=== PATIENT | male | born 1935 | race Caucasian/White ===

== ENCOUNTER → 2016-12-23 09:09 | Outpatient (CLI) | payer MEDICARE, OTHER, BC ==
[2015-05-24 11:22] VITALS: BMI 28.7
[~2016-12-23 09:09] MED LIST: ASPIRIN EC81 M1 PO; BETAPACE 80 MG80 MG PO; FLOMAX0.4 MG PO; LISINOPRIL10 MG; OMEPRAZOLE PO; PLAVIX75 MG PO; SAW PALMETTO450 MG PO; ZOCOR20 MG PO; ZOCOR40 MG PO
== END | disposition home or self-care (01) ==
LOC: D.CT 09:09
DX: R42 Dizziness and giddiness (principal)

== ENCOUNTER 2017-09-20 11:06 | Emergency (ER) | payer MEDICARE, OTHER, BC ==
[2015-05-24 11:22] VITALS: BMI 28.7
[2017-09-20 11:47] LABS: BASOPHILS 0.2 % (0-2); EOSINOPHILS 3.7 % (0-7); HEMATOCRIT 41.9 % (42.0-54.0); HEMOGLOBIN 14.1 g/dL (13.5-17.5); LYMPHOCYTES 22.7 % (15-50); MCH 32.3 pg (26.0-34.0); MCHC 33.7 g/dL (31.0-37.0); MCV 95.9 fL (80.0-100.0); MEAN PLATELET VOLUME 10.1 fL (7.4-10.4); MONOCYTES 11.2 % (2-11); NEUTROPHILS 62.2 % (40-80); RBC 4.37 10x6/uL (4.20-6.10); RDW 12.5 % (11.5-14.5); WBC 5.2 10x3/uL (4.8-10.8)
[2017-09-20 11:56] LABS: PLATELET COUNT 115 10x3/uL (130-400)
[2017-09-20 12:01] LABS: APTT 29.3 SECONDS (22.8-39.4); INR 1.07 (0.85-1.17); PROTIME 13.8 SECONDS (11.6-15.0)
[2017-09-20 12:02] LABS: ALBUMIN 3.8 g/dL (3.4-5.0); ANION GAP 13.9 mmol/L (8-16); BILIRUBIN - TOTAL 1.18 mg/dL (0.2-1.3); CALCIUM 8.5 mg/dL (8.5-10.1); CARBON DIOXIDE 25.2 mmol/L (21.0-32.0); CREATININE - SERUM 1.6 mg/dL (0.6-1.3); POTASSIUM - SERUM 4.1 mmol/L (3.5-5.1); PROTEIN - SERUM 6.8 g/dL (6.4-8.2)
== END 2017-09-20 14:05 | disposition home or self-care (01) ==
LOC: D.ER 11:06
PROVIDERS: Emergency Medicine
DX: G45.9 Transient cerebral ischemic attack, unspecified (principal); I10 Essential (primary) hypertension; Z95.0 Presence of cardiac pacemaker

== ENCOUNTER → 2018-09-19 13:29 | Outpatient (CLI) | payer MEDICARE, OTHER, BC ==
[2015-05-24 11:22] VITALS: BMI 28.7
== END | disposition home or self-care (01) ==
LOC: D.CT 13:29
DX: R93.89 Abnormal findings on diagnostic imaging of other specified body structures (principal); M54.5 Low back pain

== ENCOUNTER 2019-12-31 00:10 | Inpatient (IN) | payer MEDICARE, OTHER, BC ==
[~2019-12-31] VITALS: Ht 177.8 cm; Wt 82.3 kg
--- NOTE | ~2019-12-31 | EC ---
PATIENT:KAYLA GOMEZ DATE OF SERVICE: 12/31/19 SEX: M MEDICAL RECORD: [id number] DATE OF : [birth year] LOCATION:D.M2 D.213 AGE OF PATIENT: 84 ADMISSION DATE: 12/31/19 REFERRING PHYSICIAN: INTERPRETING PHYSICIAN: PEDRO NICHOLAS MD ECHOCARDIOGRAM REPORT ECHO CHARGES 4 ECHO COMPLETE Date: 01/01/20 CLINICAL DIAGNOSIS: DYSPNEA ECHOCARDIOGRAPHIC MEASUREMENTS (adult normal given) AC root (d.<3.7cm) 2.9 cm LV Septum d (<1.2 cm> 0.8 cm Valve Excursion 1.5 cm LV Septum (systole) 1.2 cm Left Atria (s.<4.0cm> 4.5 cm LVPW d(<1.2cm) 1.2 cm RV (d.<2.3cm) 3.1 cm LVPW (sytole) 1.6 cm LV diastole(<5.6CM) 6.7 cm MV E-F(>70mm/sec) cm LV systole 5.2 cm LVOT Diameter 2.0 cm MV exc.(>10mm) cm Est.ejection fraction (50-75%) % DOPPLER: LVIT cm/sec A 86 cm/sec E 64 cm/sec LA cm/sec RVSP 20.4 mmHg LVOT 99 cm/sec AOP1/2T m/s Asc. Ao 125 cm/sec RVOT 48 cm/sec RA cm/sec PA 78 cm/sec AV Gradient Peak 6.2 mmHg AV Mean 3.3 mmHg AV Area 2.2 cm MV Gradient Peak 3.4 mmHg MV Mean 1.5 mmHg MV Area cm COMMENTS: Air Sampler: Lacy [facility] Supervisor Metal Cans: 1 Dr. Nicholas TAPE# PACS Pericardial Effusion N DATE OF SERVICE: 01/01/2020 PROCEDURE: Echocardiogram. FINDINGS: 1. Left ventricular chamber size is mildly dilated. Left ventricular systolic function is preserved at 55% to 60%. 2. Left atrium is enlarged at 4.5 cm. Right atrium and right ventricular chamber sizes are within normal limits. 3. Valvular structures have normal structure and motion. ECHOCARDIOGRAM REPORT [id number] KAYLA GOMEZ 4. Doppler interrogation reveals no significant valvular insufficiency or stenosis. 5. No evidence of pericardial effusion or left ventricular thrombus. TRANSINT:[id number] Voice Confirmation ID: [id number] DOCUMENT ID: [id number] PEDRO NICHOLAS MD CC: [id number] DICTATION DATE: 01/01/20 1431 JEWEL STRIPPER: 01/01/20 1733 ADM IN [place] [id number] [place] [id number]
[2019-12-31 00:24] LABS: BASOPHILS 0.1 % (0-2); EOSINOPHILS 0.8 % (0-7); HEMATOCRIT 38.7 % (42.0-54.0); HEMOGLOBIN 12.7 g/dL (13.5-17.5); IMMATURE GRANULOCYTES 0.3 % (0-5); LYMPHOCYTES 4.5 % (15-50); MCH 30.4 pg (26.0-34.0); MCHC 32.8 g/dL (31.0-37.0); MCV 92.6 fL (80.0-100.0); MEAN PLATELET VOLUME 9.6 fL (7.4-10.4); MONOCYTES 4.6 % (2-11); NEUTROPHILS 89.7 % (40-80); PLATELET COUNT 145 10x3/uL (130-400); RBC 4.18 10x6/uL (4.20-6.10); RDW 14.8 % (11.5-14.5); WBC 11.7 10x3/uL (4.8-10.8)
[2019-12-31] MEDS ORDERED: CATAPRES0.1 MG PO ×2 (00:25→04:18)
[2019-12-31] MEDS ORDERED: UROXATRAL10 MG PO (00:25)
[2019-12-31] MEDS ORDERED: BAYER CHEWABLE81 MG PO (00:25)
[2019-12-31] MEDS ORDERED: CELEXA20 MG PO (00:25)
[2019-12-31] MEDS ORDERED: PROSCAR5 MG PO (00:26)
[2019-12-31] MEDS ORDERED: PRINIVIL20 MG PO (00:27)
[2019-12-31] MEDS ORDERED: METHOCARBAMOL500 MG PO ×2 (00:28→04:22)
[2019-12-31 00:32] LABS: APTT 27.2 SECONDS (22.8-39.4); INR 1.07 (0.85-1.17); PROTIME 13.8 SECONDS (11.6-15.0)
[2019-12-31 00:34] LABS: CALC OSMOLALITY 287 mosm/kg (275-300); CALCIUM 8.3 mg/dL (8.5-10.1); CARBON DIOXIDE 24.2 mmol/L (21.0-32.0); CHLORIDE - SERUM 108 mmol/L (98-107); CREATININE - SERUM 1.3 mg/dL (0.6-1.3); GLUCOSE 187 mg/dL (74-106); POTASSIUM - SERUM 4.6 mmol/L (3.5-5.1); SODIUM 140 mmol/L (136-145); UREA NITROGEN 25 mg/dL (7-18); eGFR NON AFRICAN AMERICAN 56 mL/min (90-120)
[2019-12-31 01:00] LABS: ALBUMIN 3.4 g/dL (3.4-5.0); ALKALINE PHOSPHATASE 41 U/L (30-120); ALT (SGPT) 21 U/L (10-68); CKMB 1.6 U/L (0.0-3.6); CREATINE KINASE 106 UL (21-232); PROTEIN - SERUM 6.5 g/dL (6.4-8.2); TROPONIN-I < 0.017 ng/mL (0.000-0.060)
--- NOTE | 2019-12-31 01:00 | NUR ---
PT STATES THAT HE COULD NOT HOLD IT AND URINATED IN DEPENDS. PT CHANGED AND GIVEN URINAL AT THIS TIME.
--- NOTE | 2019-12-31 03:30 | NUR ---
PT ABLE TO SIT ON BEDSIDE AND USE URINAL AT THIS TIME.
[2019-12-31 03:58] LABS: BILIRUBIN NEGATIVE (NEGATIVE); GLUCOSE NEGATIVE (NEGATIVE); KETONE NEGATIVE (NEGATIVE); NITRITE NEGATIVE (NEGATIVE); SPECIFIC GRAVITY 1.015 (1.005-1.020); UROBILINOGEN NORMAL (NORMAL)
[2019-12-31] MEDS ORDERED: LISINOPRIL10 MG PO (04:20)
[2019-12-31] MEDS ORDERED: MELATONIN 3 MG1 TAB PO (04:23)
[2019-12-31 05:43] VITALS: BP 113/71; Ht 177.8 cm; Wt 82.3 kg
--- NOTE | 2019-12-31 05:55 | NUR ---
RECEIVED REPORT FROM SAUL TOM IN ER. ARRIVED TO FLOOR ON STRETCHER. ACCOMPANIED BY STAFF AND FAMILY. ASSISTED TO BED. ALERT AND ORIENTED X4. UP WITH ASSIST. FAMILY STATES HE HAD A FALL PRIOR TO COMMING TO THE HOSPITAL AND WEAKNESS. DENIES ANY NEEDS AND ASSESSMENT COMPLETED.
[2019-12-31 07:30] VITALS: BP 113/59
[2019-12-31 11:30] VITALS: BP 92/54
[2019-12-31 15:30] VITALS: BP 119/70
[2019-12-31 15:49] LABS: % SATURATION 20 % (15-55); IRON 63 ug/dl (35-150); TOTAL IRON BIND CAPACITY 307 ug/dl (260-445); UNSAT IRON BIND CAPACITY 244 ug/dl (150-375)
[2019-12-31 16:21] LABS: MAGNESIUM - SERUM 1.8 mg/dL (1.8-2.4)
--- NOTE | 2019-12-31 19:34 | NUR ---
RECEIVED UP IN BED WITH FAMILY AT BEDSIDE. ALERT AND ORIENTED X4. UP WITH ASSIST D/T WEAKNESS. O2@ 2 LITER PER N/C. IV TO LT AC SL.. PACEMAKER TO LEFT CHEST. DENIES ANY NEEDS AT THIS TIME.
[2019-12-31 20:00] VITALS: BP 132/72
[2020-01-01 00:01] VITALS: BP 139/84
[2020-01-01 05:22] LABS: BASOPHILS 0.2 % (0-2); EOSINOPHILS 1.7 % (0-7); HEMOGLOBIN 11.4 g/dL (13.5-17.5); IMMATURE GRANULOCYTES 0.2 % (0-5); LYMPHOCYTES 10.8 % (15-50); MCH 29.7 pg (26.0-34.0); MCHC 32.6 g/dL (31.0-37.0); MCV 91.1 fL (80.0-100.0); MEAN PLATELET VOLUME 10.2 fL (7.4-10.4); MONOCYTES 9.3 % (2-11); NEUTROPHILS 77.8 % (40-80); PLATELET COUNT 150 10x3/uL (130-400); RBC 3.84 10x6/uL (4.20-6.10); RDW 15.3 % (11.5-14.5); WBC 13.3 10x3/uL (4.8-10.8)
[2020-01-01 08:23] LABS: ALBUMIN 3.2 g/dL (3.4-5.0); BILIRUBIN - TOTAL 1.03 mg/dL (0.2-1.3); CALCIUM 8.2 mg/dL (8.5-10.1); CREATININE - SERUM 1.1 mg/dL (0.6-1.3); MAGNESIUM - SERUM 1.9 mg/dL (1.8-2.4); PROTEIN - SERUM 6.2 g/dL (6.4-8.2)
[2020-01-01 10:07] VITALS: BP 159/87
--- NOTE | 2020-01-01 10:30 | NUR ---
PT RESTING COMFORTABLY IN BED WITH EYES CLOSED. EASILY AROUSES TO VOICE, PT A/O X4, RESP EVEN AND NONLABORED ON RA. LT AC IV SL. PT DENIES ANY NEEDS AT THIS TIME. CALL LIGHT IN REACH, NAD NOTED, WILL CONTINUE TO MONITOR.
[2020-01-01 13:58] VITALS: BP 141/96
--- NOTE | 2020-01-01 15:52 | NUR ---
Rehab Note- Acute Inpatient Rehab prescreen order received. The patient is noted per PT & OT Eval to be too high functioning at this time for inpatient acute rehab stay- recommending home w/ HH or Outpatient therapy at this time. Will continue to follow at this time. Has a pending GI Eval for Dysphagia. Thank you for this referral! Opal Bee RN Clinical Liaison, [facility]
--- NOTE | 2020-01-01 16:34 | NUR ---
PT RESTING COFRTABLY IN BED, DENIES ANY NEEDS AT THIS TIME. [facility] NAD NOTED, WILL CONTINUE TO MONITOR.
[2020-01-01 17:40] VITALS: BP 129/77
--- NOTE | 2020-01-01 19:29 | NUR ---
RECEIVED UP IN BED WITH EYES OPEN AND TV ON. FAMILY AT BEDSIDE. ALERT AND ORIENTED X4. HEARING AIDES IN PLACE. IV TO LT AC SL.. TELEMETRY IN PLACE. DENIES ANY NEEDS AT THIS TIME.
[2020-01-01 22:23] VITALS: BP 131/74
[2020-01-02 00:48] VITALS: BP 135/89
[2020-01-02 05:22] VITALS: BP 153/74
[2020-01-02 06:14] LABS: BASOPHILS 0.2 % (0-2); EOSINOPHILS 2.2 % (0-7); HEMATOCRIT 33.6 % (42.0-54.0); IMMATURE GRANULOCYTES 0.2 % (0-5); LYMPHOCYTES 14.1 % (15-50); MCH 29.8 pg (26.0-34.0); MCHC 32.7 g/dL (31.0-37.0); MCV 91.1 fL (80.0-100.0); MONOCYTES 7.8 % (2-11); NEUTROPHILS 75.5 % (40-80); PLATELET COUNT 139 10x3/uL (130-400); RBC 3.69 10x6/uL (4.20-6.10)
[2020-01-02 06:19] LABS: WBC 8.9 10x3/uL (4.8-10.8)
[2020-01-02 06:47] LABS: ANION GAP 12.5 mmol/L (8-16); CALCIUM 8.4 mg/dL (8.5-10.1); CARBON DIOXIDE 26.5 mmol/L (21.0-32.0); CREATININE - SERUM 1.1 mg/dL (0.6-1.3)
--- NOTE | 2020-01-02 09:35 | NUR ---
AM MEDS GIVEN AT THIS TIME. PT RESTING COMFORTABLY IN BED, A/O X4, RESP EVEN AND NONLABORED ON RA. LT AC IV SL. PT DENIES ANY OTHER NEEDS AT THIS TIME. CALL LIGHT IN REACH, NAD NOTED,WILL CONTINUE TO MONITOR.
[2020-01-02 11:02] VITALS: BP 148/85
[2020-01-02] MEDS ORDERED: ZITHROMAX500 MG PO (13:33)
[2020-01-02] MEDS ORDERED: PROTONIX40 MG PO (13:34)
[2020-01-02] MEDS ORDERED: OMNICEF300 MG PO (13:34)
[2020-01-02] MEDS ORDERED: MIRALAX17 GM PO (13:34)
--- NOTE | 2020-01-02 14:45 | MORECARE ---
CASE MANAGEMENT DISCHARGE SUMMARY PATIENT: KAYLA GOMEZ UNIT: [id number] ADM DATE: 12/31/19 AGE: 84 : 37 SEX: M ROOM/BED: D.2137 AUTHOR: GLENDY PONCE PHYSICIAN: REFERRING PHYSICIAN: KELLIE ADAMS MD DATE OF SERVICE: 01/02/20 Discharge Plan Patient Name: KAYLA GOMEZ [facility] [facility] 1935 Planned Disposition: Outpatient clinics\services (Programs) Anticipated Discharge Date: 01/02/20 Discharge Date: Expected LOS: 2 Initial Reviewer: [email or web address] Initial Review Date: 01/02/2020 Generated: 01/02/20 3:45 pm Patient Name: KAYLA GOMEZ Page [id number] at 1445 All edits/amendments must be made on the electronic document DICTATION DATE: 01/02/20 1445 SOIL SAMPLER: LEON 01/02/20 1445 RPT#: [id number] DC DATE: STATUS: ADM IN [facility] [address] [place] [address] END OF REPORT
--- NOTE | 2020-01-02 14:46 | NUR ---
PROVIDED VERBAL AND WRITTEN DISCHARGE TEACHING TO PT AND FAMILY. ALL VERBALIZED UNDERSTANDING REGARDING TEACHING. D/C LT AC IV WITH CATHETER TIP INTACT. HEART MONITOR REMOVED AND TAKEN TO HEAD CHEF. PT READY FOR WHEELCHAIR.
--- NOTE | 2020-01-02 14:50 | NUR ---
PT LEFT UNIT VIA WHEELCHAIR, WITH ALL BELONGINGS, ACCOMPANIED BY FAMILY.
--- NOTE | 2020-01-02 14:52 | MORECARE ---
CASE MANAGEMENT DISCHARGE SUMMARY PATIENT: KAYLA GOMEZ UNIT: [id number] ADM DATE: 12/31/19 AGE: 84 : 37 SEX: M ROOM/BED: D.2137 AUTHOR: GLENDY PONCE PHYSICIAN: REFERRING PHYSICIAN: KELLIE ADAMS MD DATE OF SERVICE: 01/02/20 Discharge Plan Patient Name: KAYLA GOMEZ [facility] [facility] 1935 Planned Disposition: Outpatient clinics\services (Programs) Anticipated Discharge Date: 01/02/20 Discharge Date: Expected LOS: 2 Initial Reviewer: [email or web address] Initial Review Date: 01/02/2020 Generated: 01/02/20 3:52 pm External Providers External Provider: Nancy Bolanos PT Next Contact Date: 01/02/2020 Service Request Date: Service Type: Resolution: Reviewer: Comments: Last DP export: 01/02/20 1:45 p Patient Name: KAYLA GOMEZ Page [id number] at 1452 All edits/amendments must be made on the electronic document DICTATION DATE: 01/02/201451 CEILING INSTALLER: LEON 01/02/201451 RPT#: [id number] DC DATE: STATUS: ADM IN [facility] [address] [place] [address] END OF REPORT
--- NOTE | 2020-01-02 15:02 | MORECARE ---
CASE MANAGEMENT DISCHARGE SUMMARY PATIENT: KAYLA GOMEZ UNIT: [id number] ADM DATE: 12/31/19 AGE: 84 : 37 SEX: M ROOM/BED: D.2135 AUTHOR: KRIS,DOC PHYSICIAN: REFERRING PHYSICIAN: KELLIE ADAMS MD DATE OF SERVICE: 01/02/20 Discharge Plan Patient Name: KAYLA GOMEZ Facility[facility]:[place] : 1935 Planned Disposition: Outpatient clinics\services (Programs) Anticipated Discharge Date: 01/02/20 Discharge Date: Expected LOS: 2 Initial Reviewer: [email or web address] Initial Review Date: 01/02/2020 Generated: 01/02/20 4:01 pm Comments DCP- Discharge Planning Updated by [email or web address]: Deshawn Norton on 01/02/20 1:[address] Patient Name: KAYLA GOMEZ Admission Status: ER Accout number: [id number] Admission Date: 12-31-2019 : 1935 Admission Diagnosis: Attending: KELLIE ADAMS Current LOS: 2 Anticipated DC Date: 01-02-2020 Planned Disposition: Outpatient clinics\services (Programs) Primary Insurance: MEDICARE A & B PLANNED EXTERAL PROVIDER: [facility] Discharge Planning Comments: CM RECEIVED INPATIENT REHAB PRESCREENING, CM SPOKE TO [employer] IN MULTIDISIPLINARY TEAM MEETING WHO INFORMED THAT PT IS TOO HIGH FUNCTIONING FOR INPATIENT REHAB AND HOME HEALTH WAS RECOMMENDED. CM MET WITH PT IN ROOM TO DISCUSS DISCHARGE PLANNING AND NEEDS. PT REPORTS LIVING AT HOME INDEPENDENTLY AND ALONE. PT HAS BEDSIDE COMMODE, NEBLUIZER, ROLLATOR WALKER AND SHOWER CHAIR WITH NO MEDICAL EQUIPMENT PROVIDER PREFERENCE. PT HAS NO OUTSIDE SERVICES ASSISTING IN THE HOME. CM DISCUSSED AVAILABILITY OF HOME HEALTH, REHAB SERVICES AND MEDICAL EQUIPMENT. PT WANTS REHAB AT [facility] HE HAS USED THEM FOR OUTPATIENT REHAB SERVICES IN THE PAST. PT REPORTS FAMILY WILL PICK HIM UP FOR DISCHARGE HOME. IMPORTANT MESSAGE FROM MEDICARE PROVIDED AND EXPLAINED. ORDER OBTAINED FOR OUTPATIENT THERAPY, CM CALLED [facility], AT [phone], SPOKE TO MAYRA AND PROVIDED REFERRAL INFORMATION. [facility] WILL CALL PT TO SCHEDULE FIRST APPOINTMENT. CM FAXED REFERRAL INFORMATION TO [facility] AT [phone]. BEDSIDE NURSE NOTIFIED. Front Office Spec: Deshawn Norton DCPIA - Discharge Planning Initial Assessment Updated by [email or web address]: Deshawn Norton on 01/02/20 2:54 pm * Is the patient Alert and Oriented? Yes * How many steps to enter\exit or inside your home? NONE * PCP DR. ART * Pharmacy [facility] * Preadmission Environment Home Alone * ADLs Independent * Equipment Bedside Commode Nebulizer Rolling Walker Shower Chair * Other Equipment ROLLATOR WALKER NO MEDICAL EQUIPMENT PROVIDER PREFERENCE * List name and contact numbers for known caregivers / representatives who currently or will assist patient after discharge: JESENIA IRVING, FRIEND, * Verbal permission to speak to the caregivers and representatives has been obtained from the patient. N/A * Community resources currently utilized None * Please name any agencies selected above. NONE * Additional services required to return to the preadmission environment? No * Can the patient safely return to the preadmission environment? Yes * Has this patient been hospitalized within the prior 30 days at any hospital? No Coverage Notice Reviewer: [id number] - Deshawn Norton Notice Issued Date-Time: 01/02/2020 14:15 Notice Type: IM Discharge Notice Notice Delivered To: Patient Relationship to Patient: Manager Inventory Control Name: Delivery Method: HAND - Hand Delivered Suy[place] Days: Prior Verbal Notification: Recipient Understood Notice: Yes Recipient Signature: Yes Med Rec Note Co-signed by Attending: Coverage Notice Comment: Last DP export: 01/02/20 1:52 p Patient Name: KAYLA GOMEZ Page 00180 at 1502 All edits/amendments must be made on the electronic document DICTATION DATE: 01/02/20 1501 NEEDLE CONTROL CHENILLER: LEON 01/02/20 1501 RPT#: [id number] DC DATE: STATUS: ADM IN [facility] [address] [place] [address] END OF REPORT
--- NOTE | 2020-01-03 02:55 | NUR ---
AZITHROMYCIN COMPLETE
== END 2020-01-02 14:50 | disposition home or self-care (01) | DRG 202 ==
LOC: D.ER 00:10 → D.M2 03:02
PROVIDERS: Family Medicine; ADMIT Internal Medicine Nephrology; ATTEND Internal Medicine Nephrology
DX: J20.9 Acute bronchitis, unspecified (principal); J18.9 Pneumonia, unspecified organism; N17.9 Acute kidney failure, unspecified; I48.20 Chronic atrial fibrillation, unspecified; R13.10 Dysphagia, unspecified; D64.9 Anemia, unspecified; R26.89 Other abnormalities of gait and mobility; K21.9 Gastro-esophageal reflux disease without esophagitis; N40.0 Benign prostatic hyperplasia without lower urinary tract symptoms; F32.9 Major depressive disorder, single episode, unspecified; Z95.0 Presence of cardiac pacemaker; Z86.73 Personal history of transient ischemic attack (TIA), and cerebral infarction without residual deficits; I10 Essential (primary) hypertension; R54 Age-related physical debility